=== PATIENT | male | born 1965 | race Caucasian/White ===

== ENCOUNTER 2017-03-11 10:00 | Emergency (ER) | payer OTHER, BC ==
[2017-03-11] MEDS ORDERED: KETOROLAC TROMETHAMINE 60 MG/2 ML VIAL IM ONE ×2 (10:38→10:51)
--- NOTE | 2017-03-11 11:08 | ERNOTE ---
Upper Extremity HPI - Narrative Date of Service: 03/11/17 - General Extremities Pain Location: elbow: left Time Seen by Provider: 03/11/17 10:30 Source: patient Exam Limitations: no limitations - Immun/Allergies/Home Medications Immunizations: IMMUNIZATION HX Immunizations Up to Date Yes History of Influenza Vaccine No Hx Pneumococcal Vaccination No Allergies/Adverse Reactions: Allergies Allergy/AdvReac Type Severity Reaction Status Date / Time No Known Allergies Allergy Verified 03/11/17 10:27 Home Medications: HOME MEDICATIONS Metoprolol Succinate [Toprol Xl] 100 mg PO BID 07/06/14 [Last Taken Unknown] Methimazole [Tapazole] 10 mg PO TID 03/03/15 [Last Taken Unknown] Omeprazole [Prilosec] 20 mg PO DAILY 03/03/15 [Last Taken Unknown] Naproxen [Naprosyn] 500 mg PO BID PRN #60 tab 03/11/17 [Last Taken Unknown] - History of Present Illness Narrative: Pt. comes in with c/o L inner elbow pain after he twisted it at work pushing away a drip gillespie. Pt. denies any numbness or tingling, SOB, CP, NVD, fever, recent illness, alleviating factors, aggravating factors, or prehospital treatment. Review of Systems - Review of Systems Constitutional: Present: no symptoms reported. Absent: recent illness, fever, chills, weakness, fatigue, malaise EYE: Present: no symptoms reported ENT: Present: no symptoms reported Respiratory: Present: no symptoms reported. Absent: shortness of breath, cough , wheezing Cardiology: Present: no symptoms reported. Absent: chest pain, palpitations, edema Gastrointestinal/Abdominal: Present: no symptoms reported. Absent: nausea, vomiting, diarrhea Musculoskeletal: Present: joint pain - L elbow. Absent: back pain Neurological: Present: no symptoms reported. Absent: anxiety, headache, dizziness/light-headedness, numbness, tingling All Other Systems: All systems neg except as marked - Patient's Past Medical History Patient History - Medical: Alcohol Abuse Patient History - Cardiac/Respiratory: No pertinent hx Patient History - Cancer: No Hx of Cancer Patient History - Surgical Procedures: Other, Urology Patient History - Other: None - Social History Living Situations: home Psych History: No pertinent hx - Immunizations Immunizations Up to Date: Yes Hx Pneumococcal Vaccination: No History of Influenza Vaccine: No Physical Exam - Physical Exam General Appearance: Present: wd/wn, alert, no apparent distress Eye Exam: Normal inspection: bilateral, PERRL: bilateral, EOMI: bilateral Ears, Nose, Throat: Present: normal ENT inspection, normal pharynx Neck: Present: normal inspection, nontender. Absent: lymphadenopathy (R), lymphadenopathy (L) Respiratory: Present: no respiratory distress, normal breath sounds, no accessory muscle use, chest nontender, lungs clear Cardiovascular/Chest: Present: regular rate, rhythm, no murmur, normal peripheral pulses Back Exam: Present: normal inspection, normal range of motion, no CVA tenderness , no vertebral tenderness ED Progress - Date and Time Seen: Date and Time: 03/11/17 11:45 Discussed with Endy ford we will split and sling and send to him early next week. - Vital Signs Patient's Vital Signs:: I have reviewed the patient's vital signs. Vital Signs: Vital Signs 03/11/17 10:23 Temperature 37.3 C Pulse Rate 60 Respiratory 15 Rate Blood Pressure 140/73 O2 Sat by Pulse 98 Oximetry - X-Ray X-Ray #1 X-Ray: elbow Interpretation: Reviewed by me X-ray Comments: IMPRESSION: 1. Findings suggestive of possible avulsion fracture of the olecranon enthesophyte. 2. Possible small loose joint body versus osteochondral fracture fragment of the radial head. Electronically signed by Pieter Wallis M.D.. - Progress/Reassessment Chief Complaint: Upper Extremity Injury/Problem Progress:: Improved Departure Clinical Impression: Avulsion injury of left elbow region Avulsion fracture of medial epicondyle of humerus Qualifiers: Encounter type: initial encounter Fracture type: closed Fracture alignment: displaced Laterality: left Qualified Code(s): S42.442A - Displaced fracture ( avulsion) of medial epicondyle of left humerus, initial encounter for closed fracture - Departure Disposition: Home self-care Condition: Good Instructions: Epicondyle Elbow Fracture With Rehab-SportsMed Additional Instructions: Please follow up with ortho as scheduled No use of L arm until seen by him. Please wear sling at and sling at all times. Referrals: Tran Vigil MD [Primary Care Provider] - Prescriptions: Naproxen [Naprosyn] 500 mg PO BID PRN #60 tab PRN Reason: Pain
[2017-03-11 13:59] VITALS: BP 125/82
== END 2017-03-11 12:28 | disposition home or self-care (01) ==
LOC: ER 10:00
PROC: 2W39X1Z Immobilization of Left Upper Extremity using Splint (ICD-10-PCS; principal; 2017-03-11)
DX: S42.442A Displaced fracture (avulsion) of medial epicondyle of left humerus, initial encounter for closed fracture (principal); X58.XXXA Exposure to other specified factors, initial encounter; Y93.89 Activity, other specified; Y92.69 Other specified industrial and construction area as the place of occurrence of the external cause; Y99.0 Civilian activity done for income or pay